=== PATIENT | female | born 2000 | race African-American/Black ===

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

== ENCOUNTER 2022-06-05 14:27 | Emergency (ER) | payer MEDICAID, OTHER ==
[~2022-06-05] VITALS: Ht 170.2 cm; Wt 73.0 kg
[~2022-06-05 14:27] MED LIST: NAPR-681 MT
[2022-06-05 14:32] VITALS: BP 127/56
== END 2022-06-05 20:34 | disposition left against medical advice (07) ==
LOC: ER 14:27
DX: Z53.21 Procedure and treatment not carried out due to patient leaving prior to being seen by health care provider (principal)
CPT/HCPCS: Z7610 ×5; 99281

== ENCOUNTER 2022-06-13 11:48 | Emergency (ER) | payer MEDICAID ==
[~2022-06-13] VITALS: Ht 167.6 cm; Wt 73.0 kg
[2022-06-13 12:06] VITALS: BP 127/56
[2022-06-13] MEDS ORDERED: PREN-118 PO (19:03)
== END 2022-06-13 19:00 | disposition home or self-care (01) ==
LOC: ER 11:48
DX: O34.81 Maternal care for other abnormalities of pelvic organs, first trimester (principal); N83.292 Other ovarian cyst, left side; Z3A.01 Less than 8 weeks gestation of pregnancy
CPT/HCPCS: 76801; 81025; 99284

== ENCOUNTER 2022-12-23 09:56 | Observation (INO) | payer MEDICAID ==
[~2022-12-23] VITALS: Ht 170.2 cm; Wt 99.8 kg
[~2022-12-23 09:56] MED LIST changes: +PREN-118 PO
[2022-12-23] MEDS ORDERED: LACTATED RINGERS 1,000 ML IV ONE (11:15)
[2022-12-23] MEDS ORDERED: LACTATED RINGERS 1,000 ML IV SCH (11:15)
[2022-12-23 11:58] LABS: CLARITY URINE CLOUDY (CLEAR); COLOR URINE YELLOW (YELLOW); GLUCOSE URINE NEGATIVE (NEGATIVE); KETONES URINE NEGATIVE (NEGATIVE); LEUKOCYTE ESTERASE URINE 3+ (NEGATIVE); NITRITE URINE NEGATIVE (NEGATIVE); OCCULT BLOOD URINE NEGATIVE (NEGATIVE); PH URINE 7.5 (4.5-8.0); PROTEIN URINE TRACE (NEGATIVE); SPECIFIC GRAVITY URINE 1.015 (1.005-1.030)
[2022-12-23 12:50] LABS: SQUAMOUS EPITHELIAL CELL URINE 2+ /lpf (RARE/1+)
[2022-12-23 12:51] LABS: BACTERIA URINE 2+; YEAST URINE NONE SEEN
[2022-12-23] MEDS ORDERED: CEFAZOLIN 2,000 MG in DEXT 5% WATER 100 ML IV STA (13:22)
[2022-12-23] MEDS ORDERED: CEFAZOLIN 2,000 MG in DEXT 5% WATER 100 ML IV NR (14:30)
[2022-12-23 14:39] VITALS: BP 109/70; PULSE 75; TEMP 97.7; O2SAT 98
== END 2022-12-23 15:20 | disposition home or self-care (01) ==
LOC: 8 EST LDRP 09:56
PROVIDERS: ADMIT Obstetrics & Gynecology; ATTEND Obstetrics & Gynecology
DX: O26.853 Spotting complicating pregnancy, third trimester (principal); O62.9 Abnormality of forces of labor, unspecified; O26.893 Other specified pregnancy related conditions, third trimester; N89.8 Other specified noninflammatory disorders of vagina; Z3A.33 33 weeks gestation of pregnancy
CPT/HCPCS: 59025; 96361; 96365; 81003; 76818; 76805; J0690; J7060; G0378 ×2; 96360; 99281

== ENCOUNTER 2023-01-10 09:40 | Observation (INO) | payer MEDICAID ==
[~2023-01-10] VITALS: Ht 170.2 cm; Wt 99.8 kg
[2023-01-10] MEDS ORDERED: ACETAMINOPHEN 500MG TABLET PO NR (11:00)
[2023-01-10] MEDS ORDERED: LACTATED RINGERS 1,000 ML IV SCH (11:00)
[2023-01-10 11:41] VITALS: TEMP 98.6
[2023-01-10 11:56] LABS: CLARITY URINE CLOUDY (CLEAR); COLOR URINE YELLOW (YELLOW); GLUCOSE URINE NEGATIVE (NEGATIVE); KETONES URINE 2+ (NEGATIVE); LEUKOCYTE ESTERASE URINE 3+ (NEGATIVE); NITRITE URINE NEGATIVE (NEGATIVE); OCCULT BLOOD URINE NEGATIVE (NEGATIVE); PH URINE 7.5 (4.5-8.0); PROTEIN URINE NEGATIVE (NEGATIVE); SPECIFIC GRAVITY URINE 1.015 (1.005-1.030)
[2023-01-10 11:59] LABS: BACTERIA URINE 1+; SQUAMOUS EPITHELIAL CELL URINE 1+ /lpf (RARE/1+); YEAST URINE NONE SEEN
[2023-01-10 12:32] LABS: BASOPHILS % 0.3 % (0.0-2.0); EOSINOPHILS % 0.2 % (0.0-5.0); HEMATOCRIT. 32.3 % (36.0-48.0); HEMOGLOBIN. 10.8 g/dL (12.0-16.0); MEAN CORPUSCULAR HGB CONC 33.3 g/dL (31.0-37.0); MEAN CORPUSCULAR VOLUME 87.1 fL (81.0-99.0); MEAN PLATELET VOLUME 8.4 fl (7.4-10.4); MONOCYTES % 9.9 % (2.0-8.0); NEUTROPHILS % 76.6 % (40.0-76.0); PLATELET 315 x1000/uL (130-400); RED BLOOD CELL COUNT 3.71 mill/uL (4.2-5.4); RED CELL DISTRIBUTION WIDTH 14.9 % (11.6-14.6); WHITE BLOOD COUNT 16.1 x1000/uL (4.5-11.0)
[2023-01-10 12:34] LABS: CHLORIDE 108 mEq/L (98-107); INDEX HEMOLYSI 1 (1-3); INDEX ICTERIC 1 (1-4); INDEX LIPEMIC 1 (1-3); POTASSIUM 3.5 mEq/L (3.5-5.1); SODIUM 137 mEq/L (136-145)
[2023-01-10 12:41] LABS: ALANINE AMINOTRANSFERASE 16 IU/L (13-61); ALBUMIN 2.5 g/dL (3.4-5.0); ASPARTATE AMINOTRANSFERASE 12 IU/L (15-37); BILIRUBIN TOTAL 0.2 mg/dL (0.1-1.0); CALCIUM 8.5 mg/dL (8.5-10.1); CARBON DIOXIDE 23 mEq/L (21-32); CREATININE 0.5 mg/dL (0.6-1.3); GLUCOSE 80 mg/dL (70-105); PROTEIN TOTAL 6.5 g/dL (6.0-8.3); UREA NITROGEN BLOOD 2 mg/dL (7-21); URIC ACID 4.1 mg/dL (2.6-7.2)
[2023-01-10 12:42] LABS: INR 0.9; PARTIAL THROMBOPLASTIN TIME 28.7 sec (23.4-31.0); PROTHROMBIN TIME 9.8 sec (9.6-11.0)
== END 2023-01-10 15:30 | disposition home or self-care (01) ==
LOC: 8 EST LDRP 09:40
PROVIDERS: ADMIT Obstetrics & Gynecology; ATTEND Obstetrics & Gynecology
DX: O26.893 Other specified pregnancy related conditions, third trimester (principal); Z20.822 Contact with and (suspected) exposure to COVID-19; R51.9 Headache, unspecified; Z3A.34 34 weeks gestation of pregnancy; Z79.899 Other long term (current) drug therapy
CPT/HCPCS: 59025; 96360; 96361; 80053; 81003; 84550; 85025; 85384; 85610; 85730; 36415; 87426; G0378 ×2; 99281